=== PATIENT | female | born 1985 | race Caucasian/White ===

== ENCOUNTER → 2021-03-21 11:34 | Outpatient (CLI) | payer OTHER, MEDICAID, SELFPAY ==
[2021-03-21 18:51] LABS: Add Manual Diff / Slide Review NO; Basophils Absolute Auto 0 /uL (0-100); Basophils Percent Auto 0.5 % (0-2); Eosinophils Absolute Auto 200 /uL (0-450); Eosinophils Percent Auto 4.1 % (2-4); Hematocrit 38.4 % (36-46); Lymphocytes Absolute Auto 1700 /uL (1100-4500); Lymphocytes Percent Auto 30.1 % (25-40); Mean Corpuscular HGB Conc 33.8 % (30-36); Mean Corpuscular Hemoglobin 30.3 PG (26-34); Mean Corpuscular Volume 89.6 fL (80-100); Monocytes Absolute Auto 400 /uL (0-900); Monocytes Percent Auto 7.9 % (3-14); Neutrophils Absolute Auto 3200 /uL (1500-7000); Neutrophils Percent Auto 57.4 % (50-75); Platelet Count 344 X10^3/uL (150-400); Red Blood Cell Count 4.29 X10^6/uL (4.0-5.2); Red Cell Distribution Width 12.7 % (11.6-14.8); White Blood Cell Count 5.7 X10^3/uL (4.5-11.0)
[2021-03-21 19:04] LABS: Alanine Aminotransferase 19 IU/L (<35); Albumin 4.3 g/dL (3.5-5.0); Albumin Globulin Ratio 1.4 (1.0-2.8); Alkaline Phosphatase 78 U/L (38-126); Aspartate Aminotransferase 22 IU/L (14-36); BUN Creatinine Ratio 17.5 (6-22); Bilirubin Total 0.2 mg/dL (0.2-1.3); Blood Urea Nitrogen 10 mg/dL (7-17); Carbon Dioxide 25 mmol/L (22-32); Chloride 106 mmol/L (98-107); Cholesterol 185 mg/dL (140-199); Estimated Glomerular Filt Rate > 60.0 mL/min (>60); Globulin 3.1 g/dL (1.7-4.1); Glucose 92 mg/dL (70-100); HDL Cholesterol 41 mg/dL (40-60); HEMOLYSIS < 15 (0-50); LDL Cholesterol Calculated 115 mg/dL (<100); Potassium 4.3 mmol/L (3.4-5.1); Sodium 139 mmol/L (137-145); Total Protein 7.4 g/dL (6.3-8.2); Triglycerides 146 mg/dL (35-150)
[2021-03-21 19:23] LABS: Vitamin D 25 Hydroxy (D3) 39.1 ng/mL (30.0-100.0)
[2021-03-21 19:36] LABS: TSH w/ Reflex to FT4 1.15 uIU/mL (0.47-4.68)
[2021-03-21 19:52] LABS: Vitamin B12 462 pg/mL (239-931)
== END ==
PROVIDERS: Visit Provider Physician Assistant
DX: E55.9 Vitamin D deficiency, unspecified (principal); G43.009 Migraine without aura, not intractable, without status migrainosus; R42 Dizziness and giddiness; R53.83 Other fatigue; R79.89 Other specified abnormal findings of blood chemistry; Z13.6 Encounter for screening for cardiovascular disorders
CPT/HCPCS: 80053; 80061; 82306; 82607; 84443; 85025

== ENCOUNTER → 2021-06-22 13:33 | Outpatient (CLI) | payer OTHER, MEDICAID, SELFPAY ==
[2021-06-22 19:20] LABS: Add Manual Diff / Slide Review NO; Basophils Absolute Auto 0 /uL (0-100); Basophils Percent Auto 0.6 % (0-2); Eosinophils Absolute Auto 200 /uL (0-450); Eosinophils Percent Auto 2.6 % (2-4); Hematocrit 40.3 % (36-46); Hemoglobin 13.5 g/dL (12.0-16.0); Lymphocytes Absolute Auto 1800 /uL (1100-4500); Lymphocytes Percent Auto 27.3 % (25-40); Mean Corpuscular HGB Conc 33.5 % (30-36); Mean Corpuscular Hemoglobin 29.7 PG (26-34); Mean Corpuscular Volume 88.7 fL (80-100); Monocytes Absolute Auto 500 /uL (0-900); Monocytes Percent Auto 8.3 % (3-14); Neutrophils Absolute Auto 3900 /uL (1500-7000); Neutrophils Percent Auto 61.2 % (50-75); Platelet Count 355 X10^3/uL (150-400); Red Blood Cell Count 4.54 X10^6/uL (4.0-5.2); Red Cell Distribution Width 13.1 % (11.6-14.8); White Blood Cell Count 6.4 X10^3/uL (4.5-11.0)
[2021-06-22 19:30] LABS: HEMOLYSIS < 15 (0-50); Iron 140 ug/dL (37-170)
[2021-06-22 19:41] LABS: Percent Iron Saturation 38 % (15-50); Total Iron Binding Capacity 371 ug/dL (265-497); Transferrin 282 mg/dL (206-381)
[2021-06-22 19:47] LABS: Free T3, Triiodothyronine Free 3.59 pg/mL (2.77-5.27)
[2021-06-22 21:39] LABS: Ferritin 16 ng/mL (6-137)
== END ==
PROVIDERS: PCP Physician Assistant
DX: R53.83 Other fatigue (principal); R63.5 Abnormal weight gain; Z71.3 Dietary counseling and surveillance
CPT/HCPCS: 82728; 83036; 83540; 83550; 84481; 85025

== ENCOUNTER → 2021-09-08 11:24 | Outpatient (CLI) | payer OTHER, MEDICAID, SELFPAY ==
--- NOTE | 2021-09-08 11:26 | DI.CT.S_ITS ---
PROCEDURE: CT HEAD/BRAIN WO CON INDICATIONS: progressive migraines TECHNIQUE: Noncontrast 4.5 mm thick angled axial sections acquired from the foramen magnum to the vertex, with coronal and sagittal reformats. For radiation dose reduction, the following was used: automated exposure control, adjustment of mA and/or kV according to patient size. COMPARISON: None. FINDINGS: Image quality: Excellent. CSF spaces: Basal cisterns are patent. No extra-axial fluid collections. Ventricles are normal in size and shape. Brain: No midline shift. No intracranial masses or hemorrhage. Aguirre-white matter interface is normal. Skull and face: Calvarium and visualized facial bones are intact, without suspicious lesions. Sinuses: Visualized sinuses and mastoids are clear. A prominent right-sided talita bullosa is incidentally noted. IMPRESSION: Normal noncontrast head CT, without a cause of headaches identified. Dictated by: Vern Chow M.D. on 09/08/2021 at 10:50 Approved by: Vern Chow M.D. on 09/08/2021 at 10:50
== END ==
PROVIDERS: PCP Physician Assistant; Referring Provider Family Medicine; Visit Provider Family Medicine
DX: G43.009 Migraine without aura, not intractable, without status migrainosus (principal)
CPT/HCPCS: 70450

== ENCOUNTER → 2021-09-27 12:19 | Outpatient (CLI) | payer OTHER, MEDICAID, SELFPAY | PROVIDERS: PCP Physician Assistant; Visit Provider Physician Assistant | DX: S21.002A Unspecified open wound of left breast, initial encounter (principal) | CPT/HCPCS: 87070; 87075; 87077; 87147; 87185; 87186; 87205 ==

== ENCOUNTER → 2021-12-12 15:34 | Outpatient (CLI) | payer OTHER, MEDICAID, SELFPAY | PROVIDERS: PCP Physician Assistant; Visit Provider Physician Assistant | DX: R21 Rash and other nonspecific skin eruption (principal) | CPT/HCPCS: 87081 ==

== ENCOUNTER → 2022-07-20 08:11 | Outpatient (CLI) | payer OTHER, MEDICAID, SELFPAY ==
[2022-07-20 19:52] LABS: Add Manual Diff / Slide Review NO; Basophils Absolute Auto 0 /uL (0-100); Basophils Percent Auto 0.6 % (0-2); Eosinophils Absolute Auto 300 /uL (0-450); Eosinophils Percent Auto 5.8 % (2-4); Hematocrit 39.9 % (36-46); Hemoglobin 13.6 g/dL (12.0-16.0); Lymphocytes Absolute Auto 1900 /uL (1100-4500); Lymphocytes Percent Auto 32.9 % (25-40); Mean Corpuscular HGB Conc 34.1 % (30-36); Mean Corpuscular Hemoglobin 30.4 PG (26-34); Mean Corpuscular Volume 89.3 fL (80-100); Monocytes Absolute Auto 300 /uL (0-900); Monocytes Percent Auto 5.7 % (3-14); Neutrophils Absolute Auto 3100 /uL (1500-7000); Platelet Count 343 X10^3/uL (150-400); Red Blood Cell Count 4.47 X10^6/uL (4.0-5.2); Red Cell Distribution Width 12.5 % (11.6-14.8); White Blood Cell Count 5.7 X10^3/uL (4.5-11.0)
[2022-07-20 20:06] LABS: Alanine Aminotransferase 22 IU/L (<35); Albumin 4.4 g/dL (3.5-5.0); Albumin Globulin Ratio 1.4 (1.0-2.8); Alkaline Phosphatase 73 U/L (38-126); Aspartate Aminotransferase 19 IU/L (14-36); BUN Creatinine Ratio 16.4 (6-22); Bilirubin Total 0.4 mg/dL (0.2-1.3); Blood Urea Nitrogen 10 mg/dL (7-17); Calcium 9.8 mg/dL (8.4-10.2); Carbon Dioxide 28 mmol/L (22-32); Chloride 102 mmol/L (98-107); Estimated Glomerular Filt Rate > 60 mL/min (>60); Globulin 3.2 g/dL (1.7-4.1); Glucose 102 mg/dL (70-100); HEMOLYSIS < 15 (0-50); Sodium 140 mmol/L (137-145); Total Protein 7.6 g/dL (6.3-8.2)
[2022-07-23 14:49] LABS: Candida species Negative (Negative); Gardnerella vaginalis Negative (Negative); Trichomoas vaginalis Negative (Negative)
== END ==
PROVIDERS: PCP Physician Assistant; Visit Provider Physician Assistant
DX: B37.31 Acute candidiasis of vulva and vagina (principal); F41.9 Anxiety disorder, unspecified; R22.31 Localized swelling, mass and lump, right upper limb
CPT/HCPCS: 80053; 85025; 87480; 87510; 87660

== ENCOUNTER → 2022-07-26 12:03 | Outpatient (CLI) | payer OTHER, MEDICAID, SELFPAY | PROVIDERS: PCP Physician Assistant; Visit Provider Physician Assistant | DX: Z01.419 Encounter for gynecological examination (general) (routine) without abnormal findings (principal); Z11.3 Encounter for screening for infections with a predominantly sexual mode of transmission; N89.8 Other specified noninflammatory disorders of vagina; B37.31 Acute candidiasis of vulva and vagina ==

== ENCOUNTER 2023-02-12 14:11 | Emergency (ER) | payer OTHER, SELFPAY ==
--- NOTE | 2023-02-12 14:16 | ED.DENTAL ---
HPI - Dental/Oral <Fabiola Tubbs, [facility] - Last Filed: 02/12/23 14:40> General Chief complaint: Dental/Oral Stated complaint: dental procedure t-14/poss infection Time Seen by Provider: 02/12/23 14:15 History of Present Illness HPI Narrative: This is a 37-year-old female presents to the emergency department complaining of right-sided lower dental pain which has been getting worse since 2 days after her dental procedure 14 days ago. She states that she had a large cavity that was repaired, did not have a root canal, states it was from a fractured tooth and states that the pain has gotten worse since then. She also complains of right-sided ear pain and muffled sounds. She denies fever but endorses having chills, nausea and vomiting x1 due to the pain today. States that she is been in contact with the dental office and has scheduled follow-up on Saturday but lives on [facility] and is unable to tolerate the pain. Related Data Home Medications Medication Instructions Recorded Confirmed multivitamin 1 tab PO DAILY 03/09/21 12/14/22 Previous Rx's Medication Instructions Recorded trazodone 50 mg tablet 50 mg PO BEDTIME PRN insomnia #30 07/26/22 tabs amoxicillin 500 mg capsule 1,000 mg PO Q12H #28 caps 10/25/22 benzonatate 100 mg capsule 100 mg PO TID #30 caps 10/25/22 nicotine 10 mg inhalation 1 inh inhalation Q2-4H PRN 10/25/22 cartridge (Nicotrol) nicotine cravings #168 ea buspirone 5 mg tablet See Rx Instructions PO BID #90 tabs 12/14/22 lorazepam 1 mg tablet 1 mg PO DAILY PRN panic attack(s) 12/14/22 #30 tabs amoxicillin 875 mg-potassium 1 tab PO BID 8 days #16 tabs 02/12/23 clavulanate 125 mg tablet methylprednisolone 4 mg tablets in See Rx Instructions PO .COMPLEX 02/12/23 a dose pack (Medrol (Osiel)) #21 ea omeprazole 20 mg capsule,delayed 20 mg PO QAM to prevent stomach 02/12/23 release ulcer #20 caps oxycodone-acetaminophen 5 mg-325 1 tab PO Q8H PRN pain #14 tabs 02/12/23 mg tablet (Percocet) Allergies Allergy/AdvReac Type Severity Reaction Status Date / Time sumatriptan AdvReac Severe Migraine Verified 02/12/23 14:17 Review of Systems <OWEN Tidwell - Last Filed: 02/12/23 14:40> Review of Systems ROS Unobtainable: All systems reviewed & are unremarkable except as noted in HPI and below Patient History <OWEN Tidwell - Last Filed: 02/12/23 14:40> Medical History Cervical cancer screening Encounter for hepatitis C screening test for low risk patient Encounter for smoking cessation counseling Epidermal cyst of vulva Hidradenitis suppurativa Screening for HIV without presence of risk factors Social History Smoking Status: Current every day smoker Smoking Status: Current every day smoker Exam <OWEN Tidwell - Last Filed: 02/12/23 14:40> Narrative Exam Narrative: Reviewed vitals signs and nursing notes. General: Pleasant, sitting upright and appears to be in distress related to pain, well groomed, afebrile HEENT: symmetrical facial expressions, moist mucous membranes, neck is supple, right TM is bulging with clear fluid behind, left TM is normal with appropriate landmarks and light reflex, cerumen present to bilateral canals without obstruction, right oropharynx without erythema, lesion or obvious gingival abnormality. No palpable abscess or fluctuance, pain is coming directly from the 2 teeth she had intervention on. Presume this is most likely nerve pain related to specific tooth. No significant edema is visible, uvula is midline CV: Mildly tachycardic with regular rhythm, warm extremities Respiratory: normal work of breathing, without tachypnea or hypoxia. GI: abdomen soft, nondistended, without CVA tenderness bilaterally. MSK: moves all extremities, no weakness, normal tone, ambulatory without deficit Skin: brisk capillary refill, without rash or wound Neuro: clear speech and normal cognition, A&O x3, GCS 15, no focal motor or sensation deficits Initial Vital Signs Initial Vital Signs: Vital Signs Temperature 98.4 F 02/12/23 14:17 Pulse Rate 97 H 02/12/23 14:17 Respiratory Rate 18 02/12/23 14:17 Blood Pressure 158/80 H 02/12/23 14:17 Pulse Oximetry 100 02/12/23 14:17 Oxygen Delivery Method Room Air 02/12/23 14:17 <Dianne Vitale DO - Last Filed: 02/12/23 18:33> Initial Vital Signs Initial Vital Signs: Vital Signs Temperature 98.4 F 02/12/23 14:17 Pulse Rate 97 H 02/12/23 14:17 Respiratory Rate 18 02/12/23 14:17 Blood Pressure 158/80 H 02/12/23 14:17 Pulse Oximetry 100 02/12/23 14:17 Oxygen Delivery Method Room Air 02/12/23 14:17 Course <OWEN Tidwell - Last Filed: 02/12/23 14:40> Orders Ordered: Discontinued Medications Acetaminophen (Acetaminophen 325 Mg Tablet) 975 mg PO NOW ONE Stop: 02/12/23 14:23 Last Admin: 02/12/23 14:31 Dose: 975 mg Documented By: RONI Ketorolac Tromethamine (Ketorolac 30 Mg/Ml Vial) 15 mg IM NOW ONE Stop: 02/12/23 14:23 Last Admin: 02/12/23 14:30 Dose: 15 mg Documented By: RONI Pantoprazole Sodium (Pantoprazole Dr 20 Mg Tablet) 20 mg PO NOW ONE Stop: 02/12/23 14:23 Last Admin: 02/12/23 14:31 Dose: 20 mg Documented By: RONI Prednisone (Prednisone 20 Mg Tablet) 40 mg PO NOW ONE Stop: 02/12/23 14:24 Last Admin: 02/12/23 14:31 Dose: 40 mg Documented By: RONI Vital Signs Vital signs: Vital Signs - 8 hr 02/12/23 14:17 Temperature 98.4 F Pulse Rate 97 H Respiratory Rate 18 Blood Pressure 158/80 H Pulse Oximetry 100 Oxygen Delivery Method Room Air <Dianne Vitale DO - Last Filed: 02/12/23 18:33> Orders Ordered: Discontinued Medications Acetaminophen (Acetaminophen 325 Mg Tablet) 975 mg PO NOW ONE Stop: 02/12/23 14:23 Last Admin: 02/12/23 14:31 Dose: 975 mg Documented By: RONI Ketorolac Tromethamine (Ketorolac 30 Mg/Ml Vial) 15 mg IM NOW ONE Stop: 02/12/23 14:23 Last Admin: 02/12/23 14:30 Dose: 15 mg Documented By: RONI Pantoprazole Sodium (Pantoprazole Dr 20 Mg Tablet) 20 mg PO NOW ONE Stop: 02/12/23 14:23 Last Admin: 02/12/23 14:31 Dose: 20 mg Documented By: RONI Prednisone (Prednisone 20 Mg Tablet) 40 mg PO NOW ONE Stop: 02/12/23 14:24 Last Admin: 02/12/23 14:31 Dose: 40 mg Documented By: RONI Vital Signs Vital signs: Vital Signs - 8 hr 02/12/23 14:17 Temperature 98.4 F Pulse Rate 97 H Respiratory Rate 18 Blood Pressure 158/80 H Pulse Oximetry 100 Oxygen Delivery Method Room Air MDM - Dental/Oral <OWEN Tidwell - Last Filed: 02/12/23 14:40> [facility] Narrative Medical decision making narrative: Chief Complaint: dental and ear pain Multiple etiologies for patient's complaint considered including, but not limited to: Dental abscess, gingivitis, nerve irritation from dental work, eustachian tube dysfunction, middle ear effusion, otitis media, viral upper respiratory illness I have independently reviewed the patient's vital signs and nursing notes as well as prior records if available. Plan: Patient does not have any visible abscess or active infection, her pain is deep, could be related to dental abscess at the base of the nerve root, since she did not have a root canal and her tooth is exquisitely tender, presume this is likely the cause. She is afebrile but complaining of right-sided face pain, right TM is bulging with clear fluid behind TM, suspect eustachian tube dysfunction secondary to edema and right-sided dental work course of care: Ordered Toradol IM, Augmentin, prednisone and prescribed patient Percocet with a Medrol Dosepak for pain. She is encouraged to use Zyrtec and or Laura for antihistamine to help open up the right side eustachian 2, encourage ibuprofen with omeprazole stomach irritation, gastritis or gastric ulcer, and Tums for as needed stomach pain. Patient is scheduled to follow-up with the dental clinic on Saturday. Encouraged to return emergency department if she does not get better or develops fever and chills with pain she can not tolerate. Social considerations that may affect disposition: none Questions are addressed and there is agreement with the plan and for follow-up. I consulted with the ED attending physician Dr. Vitale as needed for higher level of care considerations and they were available for discussion and recommendations regarding plan of care and diagnostic testing. Patient is appropriate for outpatient management. Discharge Plan Departure Patient Disposition: Home Clinical Impression: Pain, dental, Acute dysfunction of right eustachian tube Middle ear effusion Qualifiers: Laterality: right Qualified Code(s): H65.91 - Unspecified nonsuppurative otitis media, right ear Instructions: DI for Eustachian Tube Dysfunction-Adult, DI for Dental Pain, Tooth Fracture Activity Restrictions/Additional Instructions: *You have been diagnosed with ongoing dental pain after dental work 10 days ago. I am concerned that pain your feeling is nerve pain which may only be relieved with a root canal if you have ongoing inflammation of this nerve root. There could be a dental abscess which down antibiotics please follow-up with the dental clinic on Saturday as planned. Please use omeprazole to help prevent ulcer and take Tums as needed to COVID your stomach in between medications. Take all your medications with food and water to prevent worsening pain in your stomach. Ibuprofen is very helpful but it can lead to ulcer, since you throughout this morning, please try and treat your pain with Tylenol and pain pills and when you do take ibuprofen take it with food and water less often. *What to do: *Please continue to take your regular medications as directed. [x ] New medication prescriptions sent to your pharmacy: [facility] [ ] New medication written as a paper prescription [ ] No new medications given *Please call and schedule follow up with your primary care provider in 2-3 days, at least for an update. Let them know you were seen in the Emergency Department for the above problem. We will electronically transmit a record of today's note if your PCP or specialist is in our system. *If you do not have a primary care provider please contact [phone] to establish care with one of the [facility] primary care providers. *Return to the Emergency Department for worsening symptoms, inability to keep liquids down, fever greater than 101F, chills, or other concerning symptom. Prescriptions: New methylprednisolone [Medrol (Osiel)] 4 mg tablets,dose pack See Rx Instructions .ROUTE .COMPLEX Qty: 21 0RF Rx Instructions: orally per package directions amoxicillin-pot clavulanate 875-125 mg tablet 1 tab PO BID 8 Days Qty: 16 0RF omeprazole 20 mg capsule,delayed release(DR/EC) 20 mg PO QAM Qty: 20 0RF oxycodone-acetaminophen [Percocet] 5-325 mg tablet 1 tab PO Q8H PRN (Reason: pain) Qty: 14 0RF No Action multivitamin Tablet 1 tab PO DAILY Nicotrol 10 mg cartridge 1 inh inhalation Q2-4H PRN (Reason: nicotine cravings) Qty: 168 5RF benzonatate 100 mg capsule 100 mg PO TID Qty: 30 0RF amoxicillin 500 mg capsule 1,000 mg PO Q12H Qty: 28 0RF buspirone 5 mg tablet See Rx Instructions PO BID Qty: 90 0RF Rx Instructions: Start 1 tab twice daily. May increase by 5 mg per dose gradually up to a maximum of 15 mg per dose twice daily lorazepam 1 mg tablet 1 mg PO DAILY PRN (Reason: panic attack(s)) Qty: 30 0RF Rx Instructions: Must last 30 days. Release date 12/14/2022 trazodone 50 mg tablet 50 mg PO BEDTIME PRN (Reason: insomnia) Qty: 30 0RF Referrals: Laya Live PA-C [Primary Care Provider] - Stand Alone Forms: Patient Portal/API <Dianne Vitale DO - Last Filed: 02/12/23 18:33> Cosign ED Attending Martinezature Attestation: I was immediately available in the department for consultation. Documentation has been reviewed. Case not discussed.
[2023-02-12 14:17] VITALS: BP 158/80; PULSE 97; RESP 18; TEMP 36.9; O2SAT 100; BMI 36.0
[2023-02-12] MEDS: KETOROLAC 30 MG/ML VIAL 15 MG IM (14:30)
[2023-02-12] MEDS: PANTOPRAZOLE DR 20 MG TABLET PO (14:31)
[2023-02-12] MEDS: predniSONE 20 MG TABLET 40 MG PO (14:31)
[2023-02-12] MEDS: ACETAMINOPHEN 325 MG TABLET 975 MG PO (14:31)
== END 2023-02-12 14:39 | disposition home or self-care (01) ==
PROVIDERS: Emergency Provider Nurse Practitioner Critical Care Medicine; PCP Physician Assistant
DX: K08.89 Other specified disorders of teeth and supporting structures (principal); H65.91 Unspecified nonsuppurative otitis media, right ear; F17.200 Nicotine dependence, unspecified, uncomplicated
CPT/HCPCS: 96372; 99283; J1885

== ENCOUNTER → 2023-02-27 14:24 | Outpatient (CLI) | payer OTHER, SELFPAY ==
[2023-02-27 21:16] LABS: Alanine Aminotransferase 32 IU/L (<35); Albumin 4.2 g/dL (3.5-5.0); Albumin Globulin Ratio 1.3 (1.0-2.8); Alkaline Phosphatase 73 U/L (38-126); Aspartate Aminotransferase 22 IU/L (14-36); BUN Creatinine Ratio 13.1 (6-22); Bilirubin Total 0.4 mg/dL (0.2-1.3); Blood Urea Nitrogen 8 mg/dL (7-17); Calcium 9.5 mg/dL (8.4-10.2); Carbon Dioxide 28 mmol/L (22-32); Chloride 103 mmol/L (98-107); Estimated Glomerular Filt Rate > 60 mL/min (>60); Globulin 3.2 g/dL (1.7-4.1); Glucose 87 mg/dL (70-100); HEMOLYSIS < 15 (0-50); Potassium 4.1 mmol/L (3.4-5.1); Sodium 139 mmol/L (137-145); Total Protein 7.4 g/dL (6.3-8.2)
[2023-02-27 21:41] LABS: TSH w/ Reflex to FT4 0.75 uIU/mL (0.47-4.68)
[2023-02-28 22:58] LABS: x Labcorp Estim. Avg Glu (eAG) 105 mg/dL (.); x Labcorp Hemoglobin A1c 5.3 % (4.8-5.6)
== END ==
PROVIDERS: PCP Physician Assistant; Visit Provider Physician Assistant
DX: B35.1 Tinea unguium (principal); E66.01 Morbid (severe) obesity due to excess calories; F41.1 Generalized anxiety disorder; Z68.41 Body mass index [BMI] 40.0-44.9, adult; R00.2 Palpitations
CPT/HCPCS: 80053; 83036; 84443

== ENCOUNTER → 2023-10-03 13:31 | Outpatient (CLI) | payer OTHER, SELFPAY ==
[2023-10-03 19:17] LABS: Cholesterol 253 mg/dL (140-199); Glucose 97 mg/dL (70-100); HDL Cholesterol 39 mg/dL (40-60); LDL Cholesterol Calculated 172 mg/dL (<100); Triglycerides 212 mg/dL (35-150)
== END ==
PROVIDERS: PCP Family Medicine; Visit Provider Family Medicine
DX: R73.9 Hyperglycemia, unspecified (principal); Z68.38 Body mass index [BMI] 38.0-38.9, adult
CPT/HCPCS: 80061; 82947

== ENCOUNTER → 2023-11-05 15:35 | Outpatient (CLI) | payer OTHER, SELFPAY ==
--- NOTE | 2023-11-05 15:37 | DI.US.S_ITS ---
PROCEDURE: US ABDOMEN LIMITED INDICATIONS: RUQ PAIN TECHNIQUE: Real-time scanning was performed of the abdominal and retroperitoneal organs, with image documentation. COMPARISON: None. FINDINGS: Liver: Liver is normal in size and homogeneous in echotexture. Gallbladder: Numerous nonmobile stones are noted within gallbladder lumen measures up to 8 mm in size. Thickened gallbladder wall measures up to 5.6 mm in thickness is noted. No pericholecystic fluid. No sonographic Diaz sign. Biliary ducts: Intrahepatic bile ducts are non-dilated. Extrahepatic bile duct caliber measures 4.4 mm. Normal is 6-7 mm or less in diameter, or 10 mm or less post-cholecystectomy. Pancreas: Visualized portions of the pancreas are sonographically normal. Miscellaneous: No free abdominal fluid. IMPRESSION: Cholelithiasis with gallbladder wall thickening concerning for cholecystitis. No intra or extrahepatic biliary ductal dilatation. No gross abnormality is seen in liver and pancreas. Dictated by: Hesham Villanueva M.D. on 11/05/2023 at 16:16 Approved by: Hesham Villanueva M.D. on 11/05/2023 at 16:18
== END ==
PROVIDERS: PCP Family Medicine; Referring Provider Family Medicine; Visit Provider Family Medicine
DX: K80.20 Calculus of gallbladder without cholecystitis without obstruction (principal); R10.11 Right upper quadrant pain
CPT/HCPCS: 76705

== ENCOUNTER 2023-11-05 16:17 | Emergency (ER) | payer OTHER, SELFPAY ==
[2023-11-05 16:25] VITALS: BP 131/79; PULSE 111; RESP 20; TEMP 37.1; O2SAT 99; BMI 347.4
[2023-11-05 16:49] LABS: Add Manual Diff / Slide Review NO; Basophils Absolute Auto 0 /uL (0-100); Basophils Percent Auto 0.6 % (0-2); Eosinophils Absolute Auto 100 /uL (0-450); Eosinophils Percent Auto 1.3 % (2-4); Hematocrit 41.3 % (36-46); Hemoglobin 14.4 g/dL (12.0-16.0); Lymphocytes Absolute Auto 2000 /uL (1100-4500); Lymphocytes Percent Auto 26.2 % (25-40); Mean Corpuscular HGB Conc 34.9 % (30-36); Mean Corpuscular Hemoglobin 31.5 PG (26-34); Mean Corpuscular Volume 90.3 fL (80-100); Monocytes Absolute Auto 600 /uL (0-900); Monocytes Percent Auto 7.6 % (3-14); Neutrophils Absolute Auto 4900 /uL (1500-7000); Neutrophils Percent Auto 64.3 % (50-75); Platelet Count 369 X10^3/uL (150-400); Red Blood Cell Count 4.58 X10^6/uL (4.0-5.2); Red Cell Distribution Width 12.6 % (11.6-14.8); White Blood Cell Count 7.7 X10^3/uL (4.5-11.0)
[2023-11-05 17:11] LABS: Alanine Aminotransferase 39 IU/L (<35); Albumin 4.8 g/dL (3.5-5.0); Albumin Globulin Ratio 1.3 (1.0-2.8); Alkaline Phosphatase 79 U/L (38-126); Aspartate Aminotransferase 31 IU/L (14-36); BUN Creatinine Ratio 16.7 (6-22); Bilirubin Total 0.8 mg/dL (0.2-1.3); Blood Urea Nitrogen 10 mg/dL (7-17); Calcium 10.1 mg/dL (8.4-10.2); Carbon Dioxide 21 mmol/L (22-32); Chloride 107 mmol/L (98-107); Estimated Glomerular Filt Rate > 60 mL/min (>60); Globulin 3.7 g/dL (1.7-4.1); Glucose 104 mg/dL (70-100); HEMOLYSIS < 15 (0-50); Lipase 81 U/L (23-300); Potassium 3.6 mmol/L (3.4-5.1); Sodium 139 mmol/L (137-145); Total Protein 8.5 g/dL (6.3-8.2)
--- NOTE | 2023-11-05 18:18 | ED_ITS ---
HPI - Abdominal Pain General Chief Complaint: Abdominal Pain Stated Complaint: gall bladder sent from DI Time Seen by Provider: 11/05/23 17:52 Source: patient Mode of arrival: Ambulatory History of Present Illness HPI narrative: 38-year-old female presents from diagnostic imaging for right upper quadrant pain. Patient states she has had 1 week of aching, intermittent, nonradiating abdominal pain, worse after eating. Her primary care doctor referred her for an ultrasound. Ultrasound showed evidence of gallbladder thickening concerning for cholecystitis. She was referred to the ER for evaluation. Related Data Home Medications Medication Instructions Recorded Confirmed multivitamin 1 tab PO DAILY 03/09/21 11/01/23 Previous Rx's Medication Instructions Recorded venlafaxine 37.5 mg 37.5 mg PO DAILY #90 caps 09/19/23 capsule,extended release 24 hr (Effexor XR) lorazepam 1 mg tablet 1 mg PO DAILY PRN panic attack(s) 10/18/23 #30 tabs amoxicillin 875 mg-potassium 1 tab PO Q12H #10 tabs 11/05/23 clavulanate 125 mg tablet hydrocodone 5 mg-acetaminophen 325 1 tab PO Q8H PRN pain #10 tabs 11/05/23 mg tablet ondansetron 4 mg disintegrating 4 mg PO Q8H PRN nausea and 11/05/23 tablet vomiting #30 tabs Allergies Allergy/AdvReac Type Severity Reaction Status Date / Time sumatriptan AdvReac Severe Migraine Verified 11/05/23 16:30 Review of Systems Review of Systems Narrative: Negative except as noted above Patient History Medical History Hidradenitis suppurativa Epidermal cyst of vulva Morbid obesity with body mass index (BMI) of 40.0 to 44.9 in adult Cervical cancer screening Encounter for smoking cessation counseling Screening for HIV without presence of risk factors Encounter for hepatitis C screening test for low risk patient Social History Smoking Status: Former smoker Smoking Status: Former smoker tobacco type: cigarettes Substance Use Type: does not use Exam Initial Vital Signs Initial Vital Signs: Vital Signs Temperature 98.7 F 11/05/23 16:25 Pulse Rate 111 H 11/05/23 16:25 Respiratory Rate 20 04/02/24 16:25 Blood Pressure 131/79 11/05/23 16:25 Pulse Oximetry 99 11/05/23 16:25 Oxygen Delivery Method Room Air 11/05/23 16:25 Const: Awake, alert, no acute distress, nontoxic appearing Cardiac: regular rate, regular rhythm RESP: unlabored, clear bilaterally, no wheezing GI: Soft, mild right upper quadrant tenderness to deep palpation without rebound or guarding, negative Diaz's sign MSK: Atraumatic, full range of motion, pulses equal Skin: Warm, Dry, intact, no rashes Neuro: AO x3, CN II-XII grossly intact, moves all extremities Course Orders Ordered: Discontinued Medications Sodium Chloride (Normal Saline 0.9%) 1,000 mls @ 1,000 mls/hr IV BOLUS ONE Stop: 11/05/23 19:16 Last Admin: 11/05/23 18:43 Dose: Not Given Documented By: ANAMARIA Ketorolac Tromethamine (Ketorolac 30 Mg/Ml Vial) 15 mg IV NOW ONE Stop: 11/05/23 16:38 Ondansetron HCl (Ondansetron 4 Mg Odt) 4 mg PO NOW PRN PRN Reason: Nausea And Vomiting Ondansetron HCl (Ondansetron 4 Mg/2 Ml Inj) 4 mg IV NOW PRN PRN Reason: Nausea And Vomiting Vital Signs Vital signs: Vital Signs - 8 hr 11/05/23 16:25 Temperature 98.7 F Pulse Rate 111 H Respiratory Rate 20 Blood Pressure 131/79 Pulse Oximetry 99 Oxygen Delivery Method Room Air MDM - Abdominal Pain Differential Diagnosis Differential diagnosis: Likely abdominal pain, gastroenteritis and pancreatitis Lab Data 11/05/23 16:40 11/05/23 16:40 Labs: Lab Results 11/05/23 Range/Units 16:40 WBC 7.7 (4.5-11.0) X10^3/uL RBC 4.58 (4.0-5.2) X10^6/uL Hgb 14.4 (12.0-16.0) g/dL Hct 41.3 (36-46) % MCV 90.3 (80-100) fL MCH 31.5 (26-34) PG MCHC 34.9 (30-36) % RDW 12.6 (11.6-14.8) % Plt Count 369 (150-400) X10^3/uL Neut % (Auto) 64.3 (50-75) % Lymph % (Auto) 26.2 (25-40) % [place] % (Auto) 7.6 (3-14) % Eos % (Auto) 1.3 L (2-4) % Baso % (Auto) 0.6 (0-2) % Neut # (Auto) 4900 (9652-6698) /uL Lymph # (Auto) 2000 (5969-9311) /uL [place] # (Auto) 600 (0-900) /uL Eos # (Auto) 100 (0-450) /uL Baso # (Auto) 0 (0-100) /uL Sodium 139 (137-145) mmol/L Potassium 3.6 (3.4-5.1) mmol/L Chloride 107 (98-107) mmol/L Carbon Dioxide 21 L (22-32) mmol/L BUN 10 (7-17) mg/dL Creatinine 0.60 (0.52-1.04) mg/dL Estimated GFR > 60 (>60) mL/min BUN/Creatinine Ratio 16.7 (6-22) Glucose 104 H (70-100) mg/dL Calcium 10.1 (8.4-10.2) mg/dL Total Bilirubin 0.8 (0.2-1.3) mg/dL AST 31 (14-36) IU/L ALT 39 H (<35) IU/L Alkaline Phosphatase 79 (38-126) U/L Total Protein 8.5 H (6.3-8.2) g/dL Albumin 4.8 (3.5-5.0) g/dL Globulin 3.7 (1.7-4.1) g/dL Albumin/Globulin Ratio 1.3 (1.0-2.8) Lipase 81 (23-300) U/L Imaging Data US - abdomen: Radiologist's Impression: PROCEDURE: US ABDOMEN LIMITED INDICATIONS: RUQ PAIN TECHNIQUE: Real-time scanning was performed of the abdominal and retroperitoneal organs, with image documentation. COMPARISON: None. FINDINGS: Liver: Liver is normal in size and homogeneous in echotexture. Gallbladder: Numerous nonmobile stones are noted within gallbladder lumen measures up to 8 mm in size. Thickened gallbladder wall measures up to 5.6 mm in thickness is noted. No pericholecystic fluid. No sonographic Diaz sign. Biliary ducts: Intrahepatic bile ducts are non-dilated. Extrahepatic bile duct caliber measures 4.4 mm. Normal is 6-7 mm or less in diameter, or 10 mm or less post-cholecystectomy. Pancreas: Visualized portions of the pancreas are sonographically normal. Miscellaneous: No free abdominal fluid. IMPRESSION: Cholelithiasis with gallbladder wall thickening concerning for cholecystitis. No intra or extrahepatic biliary ductal dilatation. No gross abnormality is seen in liver and pancreas. Dictated by: Hesham Villanueva M.D. on 11/05/2023 at 16:16 Approved by: Hesham Villanueva M.D. on 11/05/2023 at 16:18 [facility] Narrative Medical decision making narrative: One week of abdominal pain, ultrasound obtained today concerning for possible developing cholecystitis. Patient's abdomen is soft, she was tenderness in the right upper quadrant to deep palpation, no peritoneal signs, negative Diaz's sign. Laboratory work is reviewed, there was no leukocytosis, liver enzymes are within normal limits. Discussed case with on-call general surgeon Dr. Lerner, who stated that patient did not need to be admitted for this procedure, and since there was a different doctor on-call tomorrow she can not speak to his schedule. She recommended following up on an outpatient basis in their clinic to schedule an appointment for removal of the gallbladder. Patient counseled on General surgery recommendations, she was willing to go home and try managing this condition at home before returning to see General surgery. While there is no leukocytosis since the ultrasound is concerning for cholecystitis we will order empiric antibiotics. Pain and nausea medication sent to pharmacy of choice. Discharge Plan Departure Patient Disposition: Home Clinical Impression: Acute cholecystitis Instructions: DI for General Gallbladder Conditions Activity Restrictions/Additional Instructions: Your laboratory work today was normal. Your ultrasound did show that you may have an infected gallbladder, however this is very mild. Please follow up with General surgery to schedule possible removal. Pain and nausea medications have been sent to your pharmacy. Prescriptions: New amoxicillin-pot clavulanate 875-125 mg tablet 1 tab PO Q12H Qty: 10 0RF hydrocodone-acetaminophen 5-325 mg tablet 1 tab PO Q8H PRN (Reason: pain) Qty: 10 0RF ondansetron 4 mg tablet,disintegrating 4 mg PO Q8H PRN (Reason: nausea and vomiting) Qty: 30 0RF No Action lorazepam 1 mg tablet 1 mg PO DAILY PRN (Reason: panic attack(s)) Qty: 30 0RF Rx Instructions: Must last 30 days. Release date 10/18/23 multivitamin Tablet 1 tab PO DAILY venlafaxine [Effexor XR] 37.5 mg capsule,extended release 24hr 37.5 mg PO DAILY Qty: 90 0RF Referrals: Shae Lerner MD [Physician] - Ricky Rubin MD [Primary Care Provider] - Stand Alone Forms: Patient Portal/API
[2023-11-05 18:50] VITALS: BP 132/67; PULSE 89; O2SAT 99
== END 2023-11-05 18:50 | disposition home or self-care (01) ==
PROVIDERS: Emergency Medicine; Emergency Provider Emergency Medicine; PCP Family Medicine
DX: K80.10 Calculus of gallbladder with chronic cholecystitis without obstruction (principal)
CPT/HCPCS: 36415; 76705; 80053; 83690; 85025; 99283

== ENCOUNTER 2023-11-07 10:58 | Day surgery (SDC) | payer OTHER, SELFPAY ==
[2023-11-06 13:30] VITALS: BMI 38.8
--- NOTE | 2023-11-07 | PATH_ITS ---
[facility] Accession Number: [id number] No. of containers..01 Tissue . 01 Material submitted: . gallbladder - GALLBLADDER . 01 Diagnosis: GALLBLADDER, CHOLECYSTECTOMY: Acute with chronic cholecystitis and cholelithiasis. Negative for dysplasia and neoplasia. MRV 11/12/2023 1455 Local . 01 Electronically signed: . Shae Reyes MD, Pathologist NPI- [id number] . 01 Gross description: . Received in formalin with two identifiers and gallbladder, is a violaceous, intact gallbladder measuring 8.3 x 2.9 x 2.9 cm. The cystic duct margin is inked blue, and no pericystic lymph node is identified. The lumen contains multiple yellow-orange, bosselated calculi measuring up to 0.9 cm in greatest dimension, not grossly obstructing the cystic duct, and admixed with dark green mucoid bile. The mucosa is green and velvety with no yellow areas of discoloration identified. The acevedo average 0.3 cm thick with no lesions identified. [employer] sections to include the cystic duct margin and full thickness sections are submitted in cassette A1. ([id number]) /MRV 11/08/2023 1140 Local . 01 Pathologist provided ICD-10: K81.0 . 01 CPT . 273263 Specimen Comment: A courtesy copy of this report has been sent to [phone] Performed at: 01 [facility] [address] [place] [address], [place], [place] [id number] MD Rogerio Lovett MD Phone: [phone]
[2023-11-07 11:35] VITALS: BP 126/81; PULSE 98; RESP 17; TEMP 37.5; O2SAT 99; BMI 37.8
[2023-11-07] MEDS: LACTATED RINGERS 1,000 ML 42 ML IV ×2 (11:39→13:31)
[2023-11-07] MEDS: ACETAMINOPHEN 325 MG TABLET 975 MG PO (11:41)
[2023-11-07] MEDS: SCOPOLAMINE 1 PATCH TOP (12:04)
--- NOTE | 2023-11-07 12:10 | P.HP_ITS ---
History of Present Illness History of Present Illness Date Patient Seen: 11/07/23 Time Patient Seen: 12:10 Chief complaint: Laparoscopic Cholecystectomy Narrative: H/o RUQ sharp pain after fatty meals. Has had multiple attacks, currently asymptomatic. FOR[facility], [facility] Medical History Depression Anxiety Hidradenitis suppurativa Epidermal cyst of vulva Morbid obesity with body mass index (BMI) of 40.0 to 44.9 in adult Cervical cancer screening Encounter for smoking cessation counseling Screening for HIV without presence of risk factors Encounter for hepatitis C screening test for low risk patient Surgical History History of gynecologic surgery (12/2016) Social History household members: spouse and children Smoking Status: Current every day smoker alcohol intake: current Meds Home Medications and Allergies Home Medications Medication Instructions Recorded Confirmed Type multivitamin 1 tab PO DAILY 03/09/21 11/07/23 History venlafaxine 37.5 mg 37.5 mg PO DAILY #90 caps 09/19/23 11/07/23 Rx capsule,extended release 24 hr (Effexor XR) lorazepam 1 mg tablet 1 mg PO DAILY PRN panic attack(s) 10/18/23 11/07/23 Rx #30 tabs amoxicillin 875 mg-potassium 1 tab PO Q12H #10 tabs 11/05/23 11/07/23 Rx clavulanate 125 mg tablet hydrocodone 5 mg-acetaminophen 325 1 tab PO Q8H PRN pain #10 tabs 11/05/23 11/07/23 Rx mg tablet ondansetron 4 mg disintegrating 4 mg PO Q8H PRN nausea and 11/05/23 Rx tablet vomiting #30 tabs Allergies Allergy/AdvReac Type Severity Reaction Status Date / Time sumatriptan AdvReac Severe Migraine Verified 11/07/23 11:31 Review of Systems Review of Systems ROS: Yes All systems reviewed with the patient and are negative except as otherwise documented Exam Vital Signs (past 8 hours): - 11/07/23 11:35 Temperature 99.5 F Pulse Rate 98 H Respiratory Rate 17 Blood Pressure 126/81 Pulse Oximetry 99 Oxygen Delivery Method Room Air Oxygen Delivery Method Room Air Const General: cooperative, healthy appearing and anxious Nutritional Appearance: overweight [facility] Head: normocephalic and atraumatic Ears: hearing grossly normal bilaterally Eyes General: appearance normal, both eyes and all related structures Periorbital: periorbital findings normal Neck Neck: trachea midline and No JVD Resp Effort & Inspection: normal respiratory effort and able to speak in complete sentences Cardio Rate: regular rate Rhythm: regular rhythm GI Palpation: soft and No tender Skin General: no rashes or lesions noted and elasticity normal Neuro General: patient alert, patient awake and patient oriented x3 Cognition: normal cognition Psych Appearance: grossly normal Mental Status: mental status grossly normal Attitude: cooperative Judgment: judgment good Assessment & Plan Assessment & Plan narrative: Biliary colic Plan: jesse abdi. Time Spent With Patient Time with patient: less than 30 minutes
[2023-11-07] MEDS: CEFAZOLIN 2 GM/100 ML PREMIX 100 ML IV (12:24)
--- NOTE | 2023-11-07 12:41 | SUR.OPER ---
Supine on padded OR bed, head on pillow, arms secured on padded arm boards at <90 degrees abduction, legs uncrossed, safety belt at thigh, tape over blanket over lower legs.
[2023-11-07] MEDS: BUPIVACAINE 0.5% (PF) 30 ML, EPINEPHrine 0.15 MG INJ (12:45)
--- NOTE | 2023-11-07 13:01 | PM.OP.1 ---
Operative Date/Time/Diagnoses Date of procedure: 11/07/23 Time of procedure: 13:02 Pre-op diagnosis: Biliary colic Post-op diagnosis: same Procedure & Clinicians Procedure: Laparoscopic cholecystectomy Same procedure as scheduled: Yes Indications: Biliary colic Surgeon: Shae Lerner Click Yes if Unassisted: Yes Anesthesia Type: General and Local Operative Notes Findings: Normal-appearing gallbladder Closure Type: primary Specimen(s): other (Gallbladder) Estimated Blood Loss (mL): 20 Blood products transfused: none Procedure in detail: Preop diagnosis: Biliary colic Postop diagnosis: Same Operative procedure: Laparoscopic cholecystectomy Surgeon: Barbara Lerner MD Findings: Normal-appearing gallbladder Procedure: Patient placed in a supine position. Prepped and draped in sterile fashion to expose her abdomen. Infraumbilical port site was placed using a open technique with a 12 mm port. Insufflation began all other ports were placed under direct vision including a 10 mm port midepigastrium and 2 5 mm ports in the right lateral abdomen. Gallbladder was lifted cephalad for exposure. Cystic duct was identified clipped twice proximally once distally and transected. Two branches of cystic artery were clipped with single clips prior to transection. I then removed the gallbladder from the fossa bed with electrocautery. There was no spillage of bile or stones. Gallbladder was placed into an Endo-Catch bag and pulled through the infraumbilical port site intact, again without spillage. I then replaced the port and surveyed the abdomen for hemostasis. We had good hemostasis at the close of the procedure I removed all ports and began closure. Closure consisted of interrupted 0 Vicryl for fascial closure. Skin was closed with a 4-0 Vicryl. Steri-Strips and sterile dressings were placed. Patient was awakened, extubated, taken to recovery room in stable condition. Needle, instrument, sponge counts were correct. Blood loss: 20 mL Specimen: Gallbladder Complications: none Post-operative Condition: stable Disposition: PACU
[2023-11-07 13:12] VITALS: BP 115/66; PULSE 63; RESP 17; TEMP 36.9; O2SAT 98
[2023-11-07 13:17] VITALS: BP 118/53; PULSE 71; RESP 11; O2SAT 98
[2023-11-07] MEDS: ONDANSETRON 4 MG/2 ML INJ IV ×2 (13:20→13:48)
[2023-11-07] MEDS: hydrOXYzine 50 MG/ML INJ IM (13:20)
[2023-11-07 13:27] VITALS: BP 115/47; PULSE 60; RESP 11; O2SAT 97
[2023-11-07] MEDS: OXYCODONE IR 5 MG TABLET PO (13:28)
[2023-11-07 13:34] VITALS: BP 114/46; PULSE 61; RESP 12; TEMP 36.5; O2SAT 98
== END 2023-11-07 15:00 | disposition home or self-care (01) ==
PROVIDERS: PCP Family Medicine; Referring Provider Surgery; Visit Provider Surgery
PROC: 0FT44ZZ Resection of Gallbladder, Percutaneous Endoscopic Approach (ICD-10-PCS; CPT 47562; principal; 2023-11-07 14:15)
DX: K80.10 Calculus of gallbladder with chronic cholecystitis without obstruction (principal)
CPT/HCPCS: 47562; 81025; J0171; J0330; J0690; J1100; J1885; J2250; J2405; J2704; J3010; J3410

== ENCOUNTER 2024-07-23 18:33 | Emergency (ER) | payer BC, SELFPAY ==
[2024-07-23 18:36] VITALS: BP 139/82; PULSE 97; RESP 18; TEMP 36.8; O2SAT 98; BMI 38.6
== END 2024-07-23 19:12 | disposition left against medical advice (07) ==
PROVIDERS: Emergency Provider Emergency Medicine; PCP Family Medicine
DX: M54.9 Dorsalgia, unspecified (principal); R20.2 Paresthesia of skin; Z53.21 Procedure and treatment not carried out due to patient leaving prior to being seen by health care provider
CPT/HCPCS: 70553; 99281

== ENCOUNTER → 2024-07-23 18:54 | Outpatient (CLI) | payer BC, SELFPAY ==
--- NOTE | 2024-07-23 18:57 | DI.MRI.S_ITS ---
PROCEDURE: MR HEAD/BRAIN WO/W CON INDICATIONS: partial loss sensation right side of body TECHNIQUE: Noncontrast axial T1 spin echo, axial T2 fast spin echo, sagittal and axial FLAIR, coronal T2 fast spin echo, axial gradient echo, axial diffusion and ADC through the brain. After the administration of contrast, axial and coronal and sagittal 3D VIBE or T1 spin echo with fat saturation through the brain. COMPARISON: None. FINDINGS: Image quality: Excellent. CSF Spaces: Basal cisterns are patent. No extra-axial fluid collections. Ventricles are normal in size and shape. Brain: No midline shift. No intracranial bleeds or masses. No abnormal intracranial enhancement. The brainstem appears normal. Diffusion-weighted images demonstrate no acute infarct. No chronic ischemic insults. Normal intravascular flow voids are present. Skull and face: Calvarial marrow is normal in signal. Orbits appear normal. Sinuses: Sinuses and mastoids appear clear. IMPRESSION: No acute intracranial pathology. No evidence of the demyelinating process. Dictated by: Vance Morton M.D. on 07/23/2024 at 20:32 Approved by: Vance Morton M.D. on 07/23/2024 at 20:34
== END ==
LOC: MRI 18:55
PROVIDERS: PCP Family Medicine; Referring Provider Family Medicine; Visit Provider Family Medicine
DX: R20.2 Paresthesia of skin (principal)
CPT/HCPCS: 70553

== ENCOUNTER → 2024-10-12 13:28 | Outpatient (CLI) | payer BC, SELFPAY ==
[2024-10-12 19:11] LABS: Add Manual Diff / Slide Review NO; Basophils Absolute Auto 0 /uL (0-100); Basophils Percent Auto 0.3 % (0-2); Eosinophils Absolute Auto 200 /uL (0-450); Eosinophils Percent Auto 3.3 % (2-4); Hematocrit 40.3 % (36-46); Hemoglobin 13.8 g/dL (12.0-16.0); Lymphocytes Absolute Auto 1900 /uL (1100-4500); Lymphocytes Percent Auto 29.1 % (25-40); Mean Corpuscular HGB Conc 34.3 % (30-36); Mean Corpuscular Volume 90.4 fL (80-100); Monocytes Absolute Auto 500 /uL (0-900); Monocytes Percent Auto 8.4 % (3-14); Neutrophils Absolute Auto 3800 /uL (1500-7000); Neutrophils Percent Auto 58.9 % (50-75); Platelet Count 378 X10^3/uL (150-400); Red Blood Cell Count 4.46 X10^6/uL (4.0-5.2); White Blood Cell Count 6.5 X10^3/uL (4.5-11.0)
[2024-10-12 19:19] LABS: Hemoglobin A1C% w Est Avg Glu 4.8 % (4.0-6.0)
[2024-10-12 19:27] LABS: Alanine Aminotransferase 21 IU/L (<35); Albumin 4.6 g/dL (3.5-5.0); Albumin Globulin Ratio 1.5 (1.0-2.8); Alkaline Phosphatase 74 U/L (38-126); Aspartate Aminotransferase 24 IU/L (14-36); BUN Creatinine Ratio 8.9 (6-22); Bilirubin Total 0.4 mg/dL (0.2-1.3); Blood Urea Nitrogen 7 mg/dL (7-17); Calcium 9.8 mg/dL (8.4-10.2); Carbon Dioxide 23 mmol/L (22-32); Chloride 105 mmol/L (98-107); Cholesterol 257 mg/dL (140-199); Estimated Glomerular Filt Rate > 60 mL/min (>60); Glucose 103 mg/dL (70-100); HDL Cholesterol 40 mg/dL (40-60); HEMOLYSIS < 15 (0-50); LDL Cholesterol Calculated 172 mg/dL (<100); Potassium 4.2 mmol/L (3.4-5.1); Sodium 139 mmol/L (137-145); Total Protein 7.6 g/dL (6.3-8.2); Triglycerides 223 mg/dL (35-150)
== END ==
PROVIDERS: PCP Family Medicine; Visit Provider Family Medicine
DX: E78.2 Mixed hyperlipidemia (principal); R00.2 Palpitations; Z68.37 Body mass index [BMI] 37.0-37.9, adult; R73.03 Prediabetes; Z87.891 Personal history of nicotine dependence
CPT/HCPCS: 80053; 80061; 83036; 85025

== ENCOUNTER → 2025-06-21 08:36 | Outpatient (CLI) | payer BC, SELFPAY ==
--- NOTE | 2025-06-21 08:39 | DI.US.S_ITS ---
PROCEDURE: US ABDOMEN COMPLETE INDICATIONS: RIGHT BACK POST AYLIN PAIN TECHNIQUE: Real-time scanning was performed of the abdominal and retroperitoneal organs, with image documentation. COMPARISON: [facility], US, US ABDOMEN LIMITED, 11/05/2023, 15:47. FINDINGS: Liver: Liver is normal in size and homogeneous in echotexture. Gallbladder: Prior cholecystectomy. Biliary ducts: Intrahepatic bile ducts are non-dilated. Extrahepatic bile duct caliber measures 3.4 mm. Normal is 6-7 mm or less in diameter, or 10 mm or less post-cholecystectomy. Pancreas: Visualized portions of the pancreas are sonographically normal. Spleen: Spleen is normal in size and homogeneous in echotexture. Kidneys: Kidneys are normal in size and echotexture. Right kidney measures 12.1 cm long; left kidney measures 12.4 cm long. No hydronephrosis or nephrolithiasis. Hypoechoic focus involves the mid to superior pole of the right kidney measuring up to 4.3 cm. Aorta: Visualized aorta is normal in caliber at less than 3 cm. Iliacs: Proximal common iliac arteries are normal in caliber at less than 2.5 cm. IVC: Intrahepatic inferior vena cava is patent. Miscellaneous: No free abdominal fluid. IMPRESSION: Hypoechoic area within the mid upper pole of the right kidney measuring up to 4.3 cm which may represent a prominent column of Varun; however hypoechoic renal neoplastic mass cannot totally be excluded. Recommend obtaining renal protocol CT or MRI for further characterization. Dictated by: Bill Escobar [facility] Interpreted: Srini Arrieta MD on 06/21/2025 at 10:00 Transcribed by: OG on 06/21/2025 at 10:02 Approved by: Srini Arrieta M.D. on 06/22/2025 at 13:04
--- NOTE | 2025-06-21 08:39 | DI.US.S_ITS ---
MM diagnostic mammo BI, US breast RT limited: 06/21/2025 BI-RADS: 2 CLINICAL: 39-year old female for bilateral diagnostic mammogram and right diagnostic breast ultrasound. Tyrer-Cuzick lifetime risk of 12.7%. No personal or first- degree family history of breast cancer. Current reported family history of breast cancer: maternal grandmother. The patient reports pain (3 months) in the right breast. PRIOR EXAMS: None. This is a baseline mammogram. MAMMOGRAPHY TECHNIQUE: 2D and 3D (tomosynthesis) digital mammographic views obtained, with additional images as needed for full coverage. Current study was also evaluated with a Computer Aided Detection (CAD) system. ULTRASOUND TECHNIQUE Real-time nuno scale and color doppler imaging of the area of clinical interest was performed with image documentation. Right targeted breast ultrasound of the area of clinical interest and the axilla was performed with image documentation. DENSITY C. The breasts are heterogeneously dense, which may obscure small masses. MAMMOGRAPHY FINDINGS Right: Outer Central, Middle depth: A skin marker was placed in the area of concern, and no mammographic abnormalities are identified or to account for concern by the patient of pain/tenderness. No suspicious mass, asymmetry, microcalcification, or other abnormality seen. Left: No suspicious mass, asymmetry, microcalcification, or other abnormality seen. ULTRASOUND FINDINGS Right: Upper Outer at 9:30, 9 cm from nipple, measuring 0.8 x 0.4 x 0.8 cm: There is an intramammary lymph node. Doppler shows hilar vascularity. Right: Upper Outer at 9:30, 11.5 cm from nipple: Underlying the surface marker, there is no sonographic abnormality to account for concern by the patient of pain/tenderness. Right: Axilla: No abnormal lymph nodes are seen in the axilla. IMPRESSION: Right * No evidence of malignancy with benign findings. Left * No evidence of malignancy. RECOMMENDATIONS Right * Clinical follow-up is recommended, and further management of palpable abnormalities or other focal signs or symptoms should be based on the results of clinical evaluation. If palpable abnormality or other concerning symptom persists or progresses, further clinical evaluation should be considered. Bilateral * Annual screening mammography. COMMENTS: Findings and recommendations were conveyed to the patient during today's evaluation. OVERALL ASSESSMENT CATEGORY BI-RADS-2: Benign. The [employer] recommends annual screening mammography beginning at age 40 for women with average risk of breast cancer. ELECTRONICALLY SIGNED: Anaya Powers M.D. on 06/21/2025 at 12:05:45 PM PT Interpreting Station ID: [id number]
[2025-06-21 11:45] LABS: Add Manual Diff / Slide Review NO; Hematocrit 38.5 % (36-46); Hemoglobin 13.3 g/dL (12.0-16.0); Lymphocytes Absolute Auto 1100 /uL (1100-4500); Mean Corpuscular HGB Conc 34.6 % (30-36); Mean Corpuscular Hemoglobin 30.6 PG (26-34); Mean Corpuscular Volume 88.5 fL (80-100); Platelet Count 313 X10^3/uL (150-400)
[2025-06-21 12:05] LABS: Hemoglobin A1C% w Est Avg Glu 4.7 % (4.0-6.0)
[2025-06-21 12:28] LABS: Alanine Aminotransferase 16 IU/L (<35); Albumin 4.5 g/dL (3.5-5.0); Albumin Globulin Ratio 1.6 (1.0-2.8); Alkaline Phosphatase 61 U/L (38-126); Amylase 66 U/L (30-110); Blood Urea Nitrogen 10 mg/dL (7-17); Calcium 9.2 mg/dL (8.4-10.2); Carbon Dioxide 23 mmol/L (22-32); Chloride 108 mmol/L (98-107); Cholesterol 189 mg/dL (140-199); Estimated Glomerular Filt Rate > 60 mL/min (>60); Globulin 2.9 g/dL (1.7-4.1); Glucose 87 mg/dL (70-99); HDL Cholesterol 43 mg/dL (40-60); HEMOLYSIS < 15 (0-50); Lipase 124 U/L (23-300); Potassium 4.1 mmol/L (3.4-5.1); Sodium 141 mmol/L (137-145); Total Protein 7.4 g/dL (6.3-8.2); Triglycerides 67 mg/dL (35-150)
[2025-06-21 16:15] LABS: TSH w/ Reflex to FT4 0.70 uIU/mL (0.47-4.68)
[2025-06-24 20:08] LABS: Alder IgE 0.97 kU/L (Class II); Alternaria alternata IgE <0.10 kU/L (Class 0); Box Elder IgE 0.15 kU/L (Class 0/I); D farinae IgE 9.17 kU/L (Class IV); D pteronyssinus IgE 11.70 kU/L (Class IV); IgE Mugwort <0.10 kU/L (Class 0); IgE Thistle,Russian 0.10 kU/L (Class 0/I); Mouse Urine Proteins IgE <0.10 kU/L (Class 0); Pigweed, Common IgE <0.10 kU/L (Class 0)
== END ==
PROVIDERS: PCP Family Medicine; Referring Provider Physician Assistant Medical; Visit Provider Physician Assistant Medical
DX: N64.4 Mastodynia (principal); G89.29 Other chronic pain; M54.9 Dorsalgia, unspecified; E78.2 Mixed hyperlipidemia; R73.03 Prediabetes; R92.333 Mammographic heterogeneous density, bilateral breasts; Z87.891 Personal history of nicotine dependence; Z91.018 Allergy to other foods; Z80.3 Family history of malignant neoplasm of breast; Z90.49 Acquired absence of other specified parts of digestive tract
CPT/HCPCS: 36415; 76642; 76700; 77066; 80053; 80061; 82150; 82785; 83036; 83690; 84443; 85025; 86003; G0279